=== PATIENT | male | born 2000 | race Caucasian/White ===

== ENCOUNTER 2021-07-30 03:35 | Emergency (ER) | payer OTHER ==
[~2021-07-30] VITALS: Ht 195.6 cm; Wt 88.0 kg
[2021-07-30 03:37] VITALS: BP 120/78
[2021-07-30] MEDS ORDERED: IBUPROFEN 600MG TABLET PO STA (03:47)
[2021-07-30] MEDS ORDERED: IBUP-2029 PO (03:53)
== END 2021-07-30 04:08 | disposition home or self-care (01) ==
LOC: ER 03:35
DX: S00.83XA Contusion of other part of head, initial encounter (principal); R04.0 Epistaxis; Y35.893A Legal intervention involving other specified means, suspect injured, initial encounter; Y93.89 Activity, other specified; Y92.89 Other specified places as the place of occurrence of the external cause
CPT/HCPCS: 99283